=== PATIENT | female | born 1995 | race Caucasian/White ===

== ENCOUNTER 2017-07-23 21:03 | Emergency (ER) | payer OTHER, MEDICAID ==
[~2017-07-23] VITALS: Ht 165.1 cm; Wt 54.4 kg
[~2017-07-23 21:03] MED LIST: BIRTH CONTROL PO; HYDROCODONE-AP1 EAC6 PO; LIDOCAINE VISC100 M1 SWISH&SPIT; PENICILLIN V P500 MG PO
[2017-07-23] MEDS ORDERED: TRAMADOL 50 MG50 MG PO (22:25)
[2017-07-23 22:45] VITALS: BP 118/60
== END 2017-07-23 22:45 | disposition home or self-care (01) ==
LOC: M.ERS 21:03
DX: S62.605A Fracture of unspecified phalanx of left ring finger, initial encounter for closed fracture (principal); Z88.8 Allergy status to other drugs, medicaments and biological substances; X58.XXXA Exposure to other specified factors, initial encounter; Y93.89 Activity, other specified; Y92.89 Other specified places as the place of occurrence of the external cause; Y99.8 Other external cause status